=== PATIENT | female | born 1945 | race Caucasian/White ===

== ENCOUNTER 2024-09-09 20:59 | Emergency (ER) | payer MEDICARE, OTHER, SELFPAY ==
[2024-09-09 21:00] VITALS: BP 148/72
--- NOTE | 2024-09-09 23:48 | ED.GENMED ---
History of Present Illness
General
Chief Complaint: Musculo-Skeletal Complaint
Time Seen by Provider: 09/09/24 23:16
History of Present Illness
History of Present Illness:
79-year-old female presents the emergency department for evaluation of discomfort to the right calf. 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 Able to ambulate with cane assistance. No fevers
or chills.
Review of Systems
Review of Systems
Allergies reviewed?: Yes
All Other Systems: ROS reviewed and negative except as documented in HPI and ROS
Phy Exam
Physical Exam
Physical Exam:
GEN: Well appearing, NAD, WDWN
HEENT: Oral mucosa moist, no scleral icterus
Cardiac: Regular rate
Lung: No respiratory distress, no tachypnea
MSK: No gross deformity or injuries. No swelling to the right leg, no popliteal cyst, no right knee effusion
Skin: Good color, no pallor or jaundice, no rashes
Neuro: AO x3, moves all extremities freely
Psych: Calm, cooperative
Course
Orders/Labs/Results
Orders:
Orders
09/09/24 21:03
US Periph Venous LOWER Ext RT Urgent
Comment:
Reason For Exam: pain, cramping in back of leg
Vital Signs
Initial and Last Documented VS:
Initial Vital Signs
Temp Pulse Resp BP Pulse Ox
97.6 F 85 18 148/72 98
09/09/24 21:00 09/09/24 21:00 09/09/24 21:00 09/09/24 21:00 09/09/24 21:00
Last Documented Vital Signs
Temp Pulse Resp BP Pulse Ox
97.6 F 80 18 138/86 98
09/09/24 21:00 09/10/24 00:04 09/10/24 00:04 09/10/24 00:04 09/10/24 00:04
MDM/Problems Addressed
MDM/Problems Addressed:
Exam is grossly benign, ultrasound reassuring against clot
*Pulse Oximetry
SaO2: 98
Oxygen Mode of Delivery: Room air
Patient hypoxic: no
*Critical Care Note
Total Time (30-74mins, 75-104mins- exclusive of procedures): Not Applicable
ED Attending Note
-
Portions of this chart may have been created with voice recognition software.� Occasional wrong word or��sound alike� substitutions may have occurred due to the inherent limitations of voice recognition software.
Discharge Plan
Departure
Patient Disposition: Home (Routine Discharge)
Date of Disposition: 09/09/24
Time of Disposition: 23:48
Patient with high blood pressure during this ER visit?: No
Discharge Problem:
Acute pain of right knee
Instructions: Knee pain - ED discharge instructions
Interventions
Interventions:
*Risk Screen - Suicide Last Done: 09/09/24 21:02
*General Assessment Last Done: 09/10/24 00:03
*Neglect/Abuse Screening Last Done: 09/09/24 21:02
*ED- Fall Risk Assessment Last Done: 09/10/24 00:03
*Nursing Disposition Last Done: 09/10/24 00:07
ED-Musculoskeletal Assessment Last Done: 09/10/24 00:03
Discharge Date and Time
Discharge Date/Time: 09/10/24 00:10
Print Language: ESTONIAN
[2024-09-10 00:04] VITALS: BP 138/86
== END 2024-09-10 00:10 | disposition home or self-care (01) ==
LOC: EMR 20:59
PROVIDERS: EMERGENCY PHYSICIAN Emergency Medicine
DX: M25.561 Pain in right knee (principal); Z96.641 Presence of right artificial hip joint
CPT/HCPCS: 99284; 93971